=== PATIENT | male | born 1970 ===

== ENCOUNTER 2017-01-04 08:27 | Outpatient (CLI) | payer OTHER ==
[2017-01-04 13:10] LABS: Hemoglobin A1c 5.8 % (4.0-6.0)
[2017-01-04 13:40] LABS: Cardiac Risk 4.3 (Less than 4.5)
== END 2017-01-04 08:28 ==
LOC: NAVSJIPCSP 08:27
PROVIDERS: ATTEND Internal Medicine
DX: E78.5 Hyperlipidemia, unspecified (principal); E11.9 Type 2 diabetes mellitus without complications
CPT/HCPCS: 36415; 80061; 83036

== ENCOUNTER 2017-04-07 07:59 | Outpatient (CLI) | payer OTHER ==
[2017-04-07 12:42] LABS: Hemoglobin A1c 5.9 % (4.0-6.0)
[2017-04-07 12:59] LABS: Cardiac Risk 4.6 (Less than 4.5)
== END 2017-04-07 08:00 | disposition home or self-care (01) ==
LOC: NAVSJIPCSP 07:59
PROVIDERS: ATTEND Internal Medicine
DX: E78.5 Hyperlipidemia, unspecified (principal); E11.9 Type 2 diabetes mellitus without complications; Z79.899 Other long term (current) drug therapy
CPT/HCPCS: 36415; 80061; 83036